=== PATIENT | female | born 1995 ===

== ENCOUNTER 2016-10-09 18:53 | Emergency (ER) | payer OTHER ==
[2016-10-09] MEDS ORDERED: IBUPROFEN 600 MG TABLET ONE (21:07)
[2016-10-09] MEDS ORDERED: DEXAMETHASONE 4 MG TABLET ONE (21:07)
[2016-10-09] MEDS ORDERED: ALBUTEROL/IPRATROPIUM 2.5/0.5 MG 3 ML/EACH DOSE ONE (21:14)
== END 2016-10-09 22:37 | disposition home or self-care (01) ==
LOC: ED 18:53
DX: J45.901 Unspecified asthma with (acute) exacerbation (principal)
CPT/HCPCS: 94640; 94664; 99283 ×2; A9270 ×2

== ENCOUNTER 2016-11-08 15:58 | Emergency (ER) | payer OTHER ==
[2016-11-08] MEDS ORDERED: PREDNISONE 20 MG TABLET ONE (16:30)
[2016-11-08] MEDS ORDERED: ALBUTEROL/IPRATROPIUM 2.5/0.5 MG 3 ML/EACH DOSE ONE (16:35)
== END 2016-11-08 17:19 | disposition home or self-care (01) ==
LOC: ED 15:58
DX: J45.909 Unspecified asthma, uncomplicated (principal)
CPT/HCPCS: 94640; 99283 ×2; J7512